=== PATIENT | male | born 1995 | race Caucasian/White ===

== ENCOUNTER 2024-07-28 04:17 | Emergency (ER) | payer SELFPAY ==
[~2024-07-28] VITALS: Ht 170.2 cm; Wt 70.0 kg
[2024-07-28 04:21] VITALS: BP 147/89; PULSE 103; RESP 16; TEMP 36.4; O2SAT 97
[2024-07-28] MEDS: ACETAMINOPHEN 325MG TABLET PO ONE (04:41)
== END 2024-07-28 04:41 ==
LOC: ER 04:17
DX: M79.641 Pain in right hand (principal); M79.642 Pain in left hand; F14.90 Cocaine use, unspecified, uncomplicated; Z02.89 Encounter for other administrative examinations; Z65.3 Problems related to other legal circumstances
CPT/HCPCS: 99283